=== PATIENT | female | born 1935 | race Caucasian/White ===

== ENCOUNTER 2017-07-14 07:19 | Outpatient (CLI) | payer OTHER, BC ==
[~2017-07-14] VITALS: Ht 157.5 cm; Wt 49.4 kg
[~2017-07-14 07:19] MED LIST: CALAN80 MG PO; SINGULAIR10 MG PO; SYNTHROID75 MCG; VERAPAMIL ER180 MG; ZOCOR20 MG
== END 2017-07-14 07:45 | disposition home or self-care (01) ==
LOC: OFIC 805 07:19
DX: J31.0 Chronic rhinitis (principal); D10.1 Benign neoplasm of tongue; J38.3 Other diseases of vocal cords

== ENCOUNTER 2017-10-01 07:17 | Outpatient (CLI) | payer OTHER, BC | END 2017-10-01 07:30 | disposition home or self-care (01) | LOC: MAMO-SONO 07:17 | DX: D21.3 Benign neoplasm of connective and other soft tissue of thorax (principal); C50.412 Malignant neoplasm of upper-outer quadrant of left female breast ==

== ENCOUNTER 2017-12-09 12:12 | Outpatient (CLI) | payer OTHER, BC | END 2017-12-09 12:14 | disposition home or self-care (01) | LOC: SONOGRAMA 12:12 | DX: E04.2 Nontoxic multinodular goiter (principal) ==

== ENCOUNTER 2018-02-10 06:46 | Emergency (ER) | payer OTHER, BC ==
[~2018-02-10] VITALS: Ht 154.9 cm; Wt 49.0 kg
== END 2018-02-10 09:51 | disposition home or self-care (01) ==
LOC: ER 06:46
DX: R53.81 Other malaise (principal)

== ENCOUNTER 2018-05-19 07:33 | Outpatient (CLI) | payer OTHER, BC | END 2018-05-19 12:07 | disposition home or self-care (01) | LOC: LAB 07:33 | DX: I11.9 Hypertensive heart disease without heart failure (principal); E78.2 Mixed hyperlipidemia; E03.8 Other specified hypothyroidism ==

== ENCOUNTER 2018-05-30 07:42 | Emergency (ER) | payer OTHER, BC ==
[~2018-05-30] VITALS: Ht 157.5 cm; Wt 47.6 kg
== END 2018-05-30 09:00 | disposition home or self-care (01) ==
LOC: ER 07:42
DX: R51 Headache (principal)

== ENCOUNTER → 2018-07-19 06:56 | Outpatient (CLI) | payer OTHER, BC | END | disposition home or self-care (01) | LOC: LAB 06:56 | DX: D64.89 Other specified anemias (principal); E78.2 Mixed hyperlipidemia; E11.65 Type 2 diabetes mellitus with hyperglycemia; N39.0 Urinary tract infection, site not specified; K58.1 Irritable bowel syndrome with constipation ==

== ENCOUNTER 2018-11-10 09:09 | Outpatient (CLI) | payer OTHER, BC | END 2018-11-10 09:21 | disposition home or self-care (01) | LOC: LAB 09:09 | DX: E11.9 Type 2 diabetes mellitus without complications (principal); I50.89 Other heart failure ==

== ENCOUNTER 2018-11-10 10:09 | Outpatient (CLI) | payer OTHER, BC | END 2018-11-10 10:31 | disposition home or self-care (01) | LOC: RAD 10:09 | DX: R07.89 Other chest pain (principal) ==

== ENCOUNTER → 2019-02-03 | Outpatient (CLI) | payer OTHER, BC ==
[~2019-02-03] MED LIST changes: +COZAAR25 MG; +MACRODANTIN100 MG; +PACERONE200 MG; +SYNTHROID88 MCG; +VITAMIN C500 M1
== END | disposition home or self-care (01) ==
LOC: MAMO-SONO 07:49
DX: Z12.31 Encounter for screening mammogram for malignant neoplasm of breast (principal); N60.21 Fibroadenosis of right breast; Z85.3 Personal history of malignant neoplasm of breast

== ENCOUNTER 2019-03-06 07:18 | Outpatient (CLI) | payer OTHER, BC | END 2019-03-06 07:54 | disposition home or self-care (01) | LOC: RAD 07:18 | DX: M77.31 Calcaneal spur, right foot (principal); M77.32 Calcaneal spur, left foot; R10.2 Pelvic and perineal pain ==

== ENCOUNTER 2019-09-04 06:43 | Outpatient (CLI) | payer OTHER, BC | END 2019-09-04 06:52 | disposition home or self-care (01) | LOC: RAD 06:43 → LAB 06:43 | DX: I10 Essential (primary) hypertension (principal); J41.8 Mixed simple and mucopurulent chronic bronchitis ==

== ENCOUNTER 2019-10-09 11:41 | Emergency (ER) | payer OTHER, BC ==
[~2019-10-09] VITALS: Ht 152.4 cm; Wt 45.4 kg
[2019-10-09] MEDS ORDERED: SYNTHROID50 MCG PO (12:26)
[2019-10-09] MEDS ORDERED: VERELAN240 MG PO (12:27)
[2019-10-09] MEDS ORDERED: ZOCOR40 MG PO (12:28)
== END 2019-10-09 19:15 | disposition home or self-care (01) ==
LOC: ER 11:41 → CPU-OBS 12:06 → ER 19:15
DX: R07.89 Other chest pain (principal); R06.02 Shortness of breath; R53.1 Weakness; Z03.818 Encounter for observation for suspected exposure to other biological agents ruled out

== ENCOUNTER 2019-12-25 07:46 | Outpatient (CLI) | payer OTHER, BC ==
[~2019-12-25 07:46] MED LIST changes: +SYNTHROID50 MCG PO; +VERELAN240 MG PO; +ZOCOR40 MG PO
== END 2019-12-27 10:11 | disposition home or self-care (01) ==
LOC: MAMO-SONO 07:46
PROVIDERS: ATTEND Specialist
DX: R92.2 Inconclusive mammogram (principal); C50.412 Malignant neoplasm of upper-outer quadrant of left female breast; D21.3 Benign neoplasm of connective and other soft tissue of thorax

== ENCOUNTER → 2020-05-13 | Emergency (ER) | payer OTHER, BC ==
[~2020-05-13] VITALS: Ht 162.6 cm; Wt 45.8 kg
[~2020-05-13] MED LIST changes: +COZAAR50 MG
== END | disposition left against medical advice (07) ==
LOC: ER 14:50
DX: R42 Dizziness and giddiness (principal); R07.89 Other chest pain; R06.02 Shortness of breath

== ENCOUNTER 2020-07-23 10:16 | Outpatient (CLI) | payer OTHER, BC | END 2020-07-23 10:27 | disposition home or self-care (01) | LOC: TOM 10:16 | PROVIDERS: ATTEND General Practice | DX: S09.90XA Unspecified injury of head, initial encounter (principal); X58.XXXA Exposure to other specified factors, initial encounter; Y93.89 Activity, other specified; Y92.89 Other specified places as the place of occurrence of the external cause; Y99.8 Other external cause status; R51.9 Headache, unspecified ==

== ENCOUNTER 2020-12-26 08:09 | Outpatient (CLI) | payer OTHER, BC | END 2020-12-26 08:26 | disposition home or self-care (01) | LOC: MAMO-SONO 08:09 | PROVIDERS: ATTEND Specialist | DX: R92.1 Mammographic calcification found on diagnostic imaging of breast (principal); Z85.3 Personal history of malignant neoplasm of breast ==

== ENCOUNTER 2022-12-24 11:16 | Emergency (ER) | payer OTHER ==
[~2022-12-24] VITALS: Ht 162.6 cm; Wt 45.4 kg
[2022-12-24] MEDS ORDERED: VERELAN PM100 MG (11:28)
[2022-12-24] MEDS ORDERED: PROZAC10 MG (11:28)
== END 2022-12-24 16:35 | disposition home or self-care (01) ==
LOC: ER 11:16
DX: N39.0 Urinary tract infection, site not specified (principal); Z88.2 Allergy status to sulfonamides; Z88.6 Allergy status to analgesic agent; R31.9 Hematuria, unspecified; K57.30 Diverticulosis of large intestine without perforation or abscess without bleeding